=== PATIENT | male | born 1980 | race Caucasian/White ===

== ENCOUNTER 2022-02-02 10:33 | Emergency (ER) | payer BC, SELFPAY ==
--- NOTE | ~2022-02-02 | XR_ITS ---
EXAMINATION: XR foot LT min 3V DATE: 02/02/2022 11:00 INDICATION: Left foot injury with pain at the fourth toe post injury 2 weeks prior. TECHNIQUE: Dorsoplantar, two oblique and lateral views of the left foot were obtained. COMPARISON: None. FINDINGS: Small amount of callus formation about a minimally impacted nondisplaced extra articular fracture at the neck of the left fourth proximal phalanx. Alignment remains essentially anatomic. No other fractu res identified. 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 Soft tissue swelling about the fourth toe. IMPRESSION: 1. Healing nondisplaced minimally impacted extra articular fracture at the neck of the left fourth pr oximal phalanx. Reviewed, dictated and finalized at location A. IMPRESSION: 1. Healing nondisplaced minimally impacted extra articular fracture at the neck of the left fourth proximal phalanx.
[2022-02-02 10:42] VITALS: BP 132/83; PULSE 55; RESP 16; TEMP 36.4; O2SAT 99
--- NOTE | 2022-02-02 12:06 | ED.LOWEXIN ---
HPI - Extremity Injury (Lower) General Chief Complaint: Extremity Injury, Lower Stated Complaint: Left foot Pain Time Seen by Provider: 02/02/22 12:00 Source: patient Mode of arrival: ambulatory Limitations: no limitations History of Present Illness HPI Narrative: Patient presents today complaining of left fourth toe injury. States he dropped a 100 pound weight on his foot 2 weeks ago. He has been wearing a postop shoe since that time and occasionally taking ibuprofen. States he wanted to come in for evaluation because of the persistent swelling. Reports he has tried to mikey tape the toe, but states the tape on stay fastened. Related Data Allergies Allergy/AdvReac Type Severity Reaction Status Date / Time No Known Allergies Allergy Unverified 07/04/20 09:18 Review of Systems Review of Systems: CONSTITUTIONAL: Denies body aches, fever, chills, or sweats. EYES: Denies visual changes, redness, or discharge. ENT: Denies rhinorrhea, congestion, sore throat, or otalgia. CARDIOVASCULAR: Denies chest pain, palpitations, or edema. RESPIRATORY: Denies cough or dyspnea. GASTROINTESTINAL: Denies abdominal pain, nausea, vomiting, or diarrhea. GENITOURINARY: Denies dysuria or hematuria. SKIN: Denies rash, itching, or wounds. MUSCULOSKELETAL: Denies back pain, or myalgia.+ Left fourth toe pain NEUROLOGIC: Denies headache, numbness, tingling, or weakness. PSYCH: Denies depression or anxiety. PMFSH Past Medical History Medical History Anxiety disorder, unspecified Depression HLD (hyperlipidemia) Hypogonadism male Recurrent herpes labialis Social History Social History Smoking status: Never smoker Alcohol intake: never Comments At time of signature, I have reviewed and agree with nursing past medical, surgical, social and family history unless otherwise noted. Please see nursing chart for further information. There is no relevant family history pertinent to the presenting complaint Exam Narrative: GENERAL: Well-appearing, well-nourished, and in no acute distress. HEAD: Normocephalic, atraumatic. EYES: EOMI. No redness or drainage. Conjunctivae normal. ENT: Mucous membranes pink and moist. NECK: Normal AROM. CHEST: No respiratory distress. EXTREMITIES: Left fourth toe: Moderate swelling about the toe with mild ecchymosis. Distal sensation intact. Capillary refill normal. Pedal pulse normal. Decreased range of motion due to swelling. Patient in postop shoe. SKIN: Warm, dry, no rash. Capillary refill normal. Normal skin turgor. NEURO: No focal deficits. Alert and oriented x3. Gait steady. PSYCH: Normal affect. No signs of depression or anxiety. Course Course Level of Care: Express Care Visit Vital Signs Vital signs: Vital Signs Temperature 97.5 F L 02/02/22 10:42 Pulse Rate 55 L 02/02/22 10:42 Respiratory Rate 16 02/02/22 10:42 Blood Pressure 132/83 02/02/22 10:42 Pulse Oximetry 99 02/02/22 10:42 Oxygen Delivery Room Air 02/02/22 10:42 Temperature 97.5 F L 02/02/22 10:42 Pulse Rate 55 L 02/02/22 10:42 Respiratory Rate 16 02/02/22 10:42 Blood Pressure 132/83 02/02/22 10:42 Pulse Oximetry 99 02/02/22 10:42 Oxygen Delivery Room Air 02/02/22 10:42 Reviewed. Pt has been instructed to follow up with his PCP regarding his elevated blood pressure today. MDM - Extremity Injury (Lower) Differential Diagnosis Differential diagnosis: Likely other (Toe fracture, sprain, dislocation, contusion) Imaging Data Radiologist's impression: ITS Impressions Foot X-Ray 02/02/22 11:04 IMPRESSION: 1. Healing nondisplaced minimally impacted extra articular fracture at the neck of the left fourth proximal phalanx. Critical Care Time Critical Care Time Critical Care Time: No Discharge Plan Discharge Clinical Impression: Fracture of toe of
== END 2022-02-02 12:16 | disposition home or self-care (01) ==
PROVIDERS: Emergency Provider Nurse Practitioner; PCP Emergency Medicine
DX: S92.515A Nondisplaced fracture of proximal phalanx of left lesser toe(s), initial encounter for closed fracture (principal); W20.8XXA Other cause of strike by thrown, projected or falling object, initial encounter; E78.5 Hyperlipidemia, unspecified
CPT/HCPCS: 73630; 99213; G0463